=== PATIENT | female | born 1960 | race Caucasian/White ===

== ENCOUNTER 2017-01-27 15:01 | Inpatient (IN) | payer MEDICAID ==
[~2017-01-27] VITALS: Ht 154.9 cm; Wt 83.0 kg
[2017-01-27 16:51] LABS: BASOPHIL % 0.3 % (0-2); PLATELET COUNT 210 x10^3mcL (130-400); RED CELL DISTRIBUTION WIDTH 12.8 % (11.5-14.5)
[2017-01-27 16:57] LABS: CALCIUM 8.7 mg/dL (8.5-10.1); CARBON DIOXIDE 31.7 mmol/L (21-32); CHLORIDE SERUM 103 mmol/L (98-107); CREATININE SERUM 0.9 mg/dL (0.6-1.0); GFR1 > 60 mL/min; GLUCOSE SERUM 211 mg/dL (74-106); POTASSIUM SERUM 3.5 mmol/L (3.5-5.1); SODIUM SERUM 139 mmol/L (136-145)
[2017-01-27 17:01] LABS: ALKALINE PHOSPHATASE 105 U/L (46-116); ALT/SGPT 26 U/L (14-59); AMYLASE 25 U/L (25-115); AST/SGOT 14 U/L (15-37); BILIRUBIN TOTAL 0.6 mg/dL (0.20-1.00); HDL CHOLESTEROL 47 mg/dL (40-60); LIPASE 73 IU/L (73-393); TOTAL PROTEIN, SERUM 7.4 g/dL (6.4-8.2)
[2017-01-27 17:10] LABS: ALBUMIN 3.3 g/dL (3.4-5.0); CHOLESTEROL 120 mg/dL (<200)
[2017-01-27 17:51] LABS: microscopic required? YES; urine erythrocyte NEGATIVE (NEGATIVE)
[2017-01-27 18:00] LABS: AMPHETAMINE QUAL UR NONE DETECTED (NEG <=1000)
[2017-01-27] MEDS ORDERED: GLUCOPHAGE XR500 MG PO (18:14)
[2017-01-27 18:46] LABS: PHOSPHOROUS 3.5 mg/dL (2.5-4.9)
[2017-01-27 18:57] LABS: T3 TOTAL 1.13 ng/mL
[2017-01-27 19:07] LABS: FREE T4 1.11 ng/dL (0.76-1.46)
[2017-01-27 19:53] VITALS: BP 150/78
[2017-01-27 22:08] VITALS: BP 141/75
[2017-01-28 06:01] VITALS: BP 156/77
[2017-01-28 07:33] LABS: CALCIUM 8.9 mg/dL (8.5-10.1); CARBON DIOXIDE 23.8 mmol/L (21-32); CHLORIDE SERUM 105 mmol/L (98-107); CREATININE SERUM 0.7 mg/dL (0.6-1.0); GFR1 > 60 mL/min; GLUCOSE SERUM 299 mg/dL (74-106); MAGNESIUM 1.9 mg/dL (1.8-2.4); PHOSPHOROUS 3.5 mg/dL (2.5-4.9); POTASSIUM SERUM 3.9 mmol/L (3.5-5.1); SODIUM SERUM 139 mmol/L (136-145)
[2017-01-28 08:26] LABS: PLATELET COUNT 196 x10^3mcL (130-400)
[2017-01-28 09:30] VITALS: BP 154/84
[2017-01-28 09:35] LABS: BAND NEUTROPHIL 4 % (0-10); METAMYELOCTE 2 % (0-2); MONOCYTE 1 % (0-7); PLATELET MORPHOLOGY FEW LARGE PLATELETS; SEGMENTED NEUTROPHILS 83 % (37-75); rbc morphology (normal/abnorm) NORMAL (NORMAL)
[2017-01-28 11:54] VITALS: Ht 154.9 cm; Wt 83.0 kg
[2017-01-28 13:10] VITALS: BP 161/80
[2017-01-28 18:41] VITALS: BP 165/82
[2017-01-28 20:36] VITALS: BP 138/78
[2017-01-29 07:14] LABS: CARBON DIOXIDE 24.4 mmol/L (21-32); CHLORIDE SERUM 108 mmol/L (98-107); CREATININE SERUM 0.6 mg/dL (0.6-1.0); GFR1 > 60 mL/min; GLUCOSE SERUM 209 mg/dL (74-106); POTASSIUM SERUM 3.5 mmol/L (3.5-5.1); SODIUM SERUM 140 mmol/L (136-145)
[2017-01-29 07:17] VITALS: BP 156/78
[2017-01-29 07:24] LABS: BASOPHIL % 0.2 % (0-2); PLATELET COUNT 195 x10^3mcL (130-400); RED CELL DISTRIBUTION WIDTH 13.3 % (11.5-14.5)
[2017-01-29 10:38] VITALS: BP 162/91
[2017-01-29 11:30] VITALS: BP 136/75
[2017-01-29] MEDS ORDERED: ECO81 PO (11:43)
[2017-01-29] MEDS ORDERED: PRA20 PO (11:43)
[2017-01-29] MEDS ORDERED: COL100 PO (11:44)
[2017-01-29] MEDS ORDERED: PRI20 PO (11:45)
[2017-01-29] MEDS ORDERED: METFORMIN HCL1000 MG PO (11:46)
[2017-01-29] MEDS ORDERED: LAC PO (11:46)
[2017-01-29] MEDS ORDERED: GLU5 PO (11:47)
[2017-01-29] MEDS ORDERED: MAC100 PO (11:47)
[2017-01-29] MEDS ORDERED: NORCO1 TA2 PO (11:49)
[2017-01-29] MEDS ORDERED: LISINOPRIL10 MG PO (11:50)
== END 2017-01-29 13:45 | disposition home or self-care (01) | DRG 243 ==
LOC: ED 15:01 → DU 17:48
PROVIDERS: Emergency Medicine; Family Medicine; ADMIT Family Medicine
DX: K21.9 Gastro-esophageal reflux disease without esophagitis (principal); N17.0 Acute kidney failure with tubular necrosis; E44.1 Mild protein-calorie malnutrition; D68.69 Other thrombophilia; E11.59 Type 2 diabetes mellitus with other circulatory complications; E11.65 Type 2 diabetes mellitus with hyperglycemia; I16.0 Hypertensive urgency; E66.9 Obesity, unspecified; Z68.34 Body mass index [BMI] 34.0-34.9, adult; Z79.84 Long term (current) use of oral hypoglycemic drugs; Z90.710 Acquired absence of both cervix and uterus
CPT/HCPCS: 80307; 83880; 84439; 90732; J0360; J0696; J1815; J2930; J7030; J7613; J7644; Q0092

== ENCOUNTER 2017-03-22 15:06 | Emergency (ER) | payer MEDICAID ==
[~2017-03-22 15:06] MED LIST: COL100 PO; ECO81 PO; GLU5 PO; GLUCOPHAGE XR500 MG PO; LAC PO; LISINOPRIL10 MG PO; MAC100 PO; METFORMIN HCL1000 MG PO; NORCO1 TA2 PO; PRA20 PO; PRI20 PO
[2017-03-22 15:33] LABS: BASOPHIL % 0.4 % (0-2); PLATELET COUNT 234 x10^3mcL (130-400); RED CELL DISTRIBUTION WIDTH 13.2 % (11.5-14.5)
[2017-03-22 15:47] LABS: CALCIUM 8.5 mg/dL (8.5-10.1); CARBON DIOXIDE 29.2 mmol/L (21-32); CHLORIDE SERUM 105 mmol/L (98-107); CREATININE SERUM 0.7 mg/dL (0.6-1.0); GFR1 > 60 mL/min; GLUCOSE SERUM 156 mg/dL (74-106); POTASSIUM SERUM 3.9 mmol/L (3.5-5.1); SODIUM SERUM 141 mmol/L (136-145)
[2017-03-22 15:52] LABS: ALKALINE PHOSPHATASE 98 U/L (46-116); ALT/SGPT 28 U/L (14-59); AST/SGOT 14 U/L (15-37); BILIRUBIN TOTAL 0.49 mg/dL (0.20-1.00); TOTAL PROTEIN, SERUM 7.5 g/dL (6.4-8.2)
[2017-03-22 15:56] LABS: ALBUMIN 3.2 g/dL (3.4-5.0)
[2017-03-22 17:42] LABS: T4(THYROXINE) 10.1 ug/dL (4.7-13.3)
[2017-03-22 18:44] VITALS: BP 158/89
== END 2017-03-22 18:44 | disposition home or self-care (01) ==
LOC: ED 15:06
PROVIDERS: Emergency Medicine
DX: R00.2 Palpitations (principal); M54.6 Pain in thoracic spine; I10 Essential (primary) hypertension; E11.9 Type 2 diabetes mellitus without complications
CPT/HCPCS: 36415; 83880

== ENCOUNTER 2017-03-27 00:34 | Emergency (ER) | payer MEDICAID ==
[2017-03-27 04:25] VITALS: BP 142/62
== END 2017-03-27 04:26 | disposition home or self-care (01) ==
LOC: ED 00:34
DX: M43.06 Spondylolysis, lumbar region (principal); R10.32 Left lower quadrant pain; I10 Essential (primary) hypertension; E11.9 Type 2 diabetes mellitus without complications; Z79.84 Long term (current) use of oral hypoglycemic drugs
CPT/HCPCS: J1885

== ENCOUNTER 2017-05-09 09:45 | Emergency (ER) | payer MEDICAID ==
[~2017-05-09] VITALS: Ht 157.5 cm; Wt 84.0 kg
[2017-05-09 10:33] LABS: BASOPHIL % 0.3 % (0-2); PLATELET COUNT 209 x10^3mcL (130-400)
[2017-05-09 10:53] LABS: CALCIUM 8.6 mg/dL (8.5-10.1); CARBON DIOXIDE 29.3 mmol/L (21-32); CHLORIDE SERUM 105 mmol/L (98-107); CREATININE SERUM 0.7 mg/dL (0.6-1.0); GFR1 > 60 mL/min; GLUCOSE SERUM 290 mg/dL (74-106); POTASSIUM SERUM 3.9 mmol/L (3.5-5.1); SODIUM SERUM 137 mmol/L (136-145)
[2017-05-09 10:58] LABS: ALBUMIN 3.2 g/dL (3.4-5.0); ALKALINE PHOSPHATASE 109 U/L (46-116); ALT/SGPT 23 U/L (14-59); AST/SGOT 15 U/L (15-37); BILIRUBIN TOTAL 0.5 mg/dL (0.20-1.00); TOTAL PROTEIN, SERUM 7.7 g/dL (6.4-8.2)
[2017-05-09 11:37] LABS: microscopic required? NO
[2017-05-09 11:45] LABS: UA SPECIFIC GRAVITY <=1.005 (1.005-1.035); urine erythrocyte NEGATIVE (NEGATIVE)
[2017-05-09 13:14] VITALS: BP 173/95
== END 2017-05-09 13:14 | disposition home or self-care (01) ==
LOC: ED 09:45
PROVIDERS: Emergency Medicine
DX: R51 Headache (principal); R42 Dizziness and giddiness; I10 Essential (primary) hypertension; E11.9 Type 2 diabetes mellitus without complications; Z88.8 Allergy status to other drugs, medicaments and biological substances; Z79.84 Long term (current) use of oral hypoglycemic drugs
CPT/HCPCS: 83880; J2405; J3010; J7030; Q0092

== ENCOUNTER 2017-07-28 11:56 | Emergency (ER) | payer MEDICAID ==
[2017-07-28 13:30] VITALS: BP 162/94
== END 2017-07-28 13:55 | disposition home or self-care (01) ==
LOC: ED 11:56
DX: N39.0 Urinary tract infection, site not specified (principal); I10 Essential (primary) hypertension; E11.9 Type 2 diabetes mellitus without complications; Z79.84 Long term (current) use of oral hypoglycemic drugs; Z88.8 Allergy status to other drugs, medicaments and biological substances

== ENCOUNTER 2018-11-23 06:55 | Emergency (ER) | payer MEDICAID ==
[~2018-11-23] VITALS: Ht 157.5 cm; Wt 83.0 kg
[2018-11-23 07:06] VITALS: Ht 157.5 cm; Wt 83.0 kg
[2018-11-23 08:00] LABS: BASOPHIL % 0.1 % (0-2); PLATELET COUNT 185 x10^3mcL (130-400); RED CELL DISTRIBUTION WIDTH 12.8 % (11.5-14.5)
[2018-11-23 08:02] LABS: CALCIUM 8.4 mg/dL (8.5-10.1); CARBON DIOXIDE 28.5 mmol/L (21-32); CHLORIDE SERUM 107 mmol/L (98-107); CREATININE SERUM 0.7 mg/dL (0.6-1.0); GFR1 > 60 mL/min; GLUCOSE SERUM 261 mg/dL (74-106); POTASSIUM SERUM 3.8 mmol/L (3.5-5.1); SODIUM SERUM 143 mmol/L (136-145)
[2018-11-23 08:11] LABS: ALKALINE PHOSPHATASE 117 U/L (46-116); ALT/SGPT 26 U/L (14-59); AST/SGOT 17 U/L (15-37); BILIRUBIN TOTAL 0.79 mg/dL (0.20-1.00); HDL CHOLESTEROL 44 mg/dL (40-60); LIPASE 52 IU/L (73-393); T4(THYROXINE) 9.5 ug/dL (4.7-13.3); TOTAL PROTEIN, SERUM 7.2 g/dL (6.4-8.2)
[2018-11-23 08:12] LABS: AMYLASE 22 U/L (25-115); CHOLESTEROL 118 mg/dL (<200)
[2018-11-23 08:24] LABS: UA SPECIFIC GRAVITY <=1.005 (1.005-1.035); microscopic required? YES; urine erythrocyte NEGATIVE (NEGATIVE)
[2018-11-23 08:45] LABS: AMPHETAMINE QUAL UR NONE DETECTED (See below)
[2018-11-23 09:30] VITALS: BP 180/90
== END 2018-11-23 09:30 | disposition home or self-care (01) ==
LOC: ED 06:55
PROVIDERS: Emergency Medicine
DX: J98.01 Acute bronchospasm (principal); E46 Unspecified protein-calorie malnutrition; I10 Essential (primary) hypertension; E66.9 Obesity, unspecified; E11.65 Type 2 diabetes mellitus with hyperglycemia; Z68.33 Body mass index [BMI] 33.0-33.9, adult
CPT/HCPCS: 36415; 83880; J2930; J7613; J7644

== ENCOUNTER 2018-12-04 01:06 | Emergency (ER) | payer MEDICAID ==
[~2018-12-04] VITALS: Ht 157.5 cm; Wt 78.5 kg
[2018-12-04 01:16] VITALS: Ht 157.5 cm; Wt 78.5 kg
[2018-12-04 04:39] LABS: CALCIUM 8.4 mg/dL (8.5-10.1); CARBON DIOXIDE 27.2 mmol/L (21-32); CHLORIDE SERUM 103 mmol/L (98-107); CREATININE SERUM 0.6 mg/dL (0.6-1.0); GFR1 > 60 mL/min; GLUCOSE SERUM 374 mg/dL (74-106); POTASSIUM SERUM 4.1 mmol/L (3.5-5.1); SODIUM SERUM 137 mmol/L (136-145)
[2018-12-04 05:30] VITALS: BP 149/72
== END 2018-12-04 05:30 | disposition home or self-care (01) ==
LOC: ED 01:06
PROVIDERS: Emergency Medicine
DX: E11.65 Type 2 diabetes mellitus with hyperglycemia (principal); I10 Essential (primary) hypertension; Z90.710 Acquired absence of both cervix and uterus; Z88.6 Allergy status to analgesic agent
CPT/HCPCS: 36415; 82962; J1885

== ENCOUNTER 2018-12-06 23:45 | Emergency (ER) | payer MEDICAID ==
[~2018-12-06] VITALS: Ht 152.4 cm; Wt 80.3 kg
[2018-12-07 00:11] VITALS: Ht 152.4 cm; Wt 80.3 kg
[2018-12-07 02:00] VITALS: BP 150/78
== END 2018-12-07 02:00 | disposition home or self-care (01) ==
LOC: ED 23:45
DX: N76.0 Acute vaginitis (principal); I10 Essential (primary) hypertension; E11.9 Type 2 diabetes mellitus without complications; Z88.1 Allergy status to other antibiotic agents; Z90.710 Acquired absence of both cervix and uterus
CPT/HCPCS: J1885

== ENCOUNTER 2019-11-03 06:10 | Emergency (ER) | payer MEDICAID ==
[~2019-11-03] VITALS: Ht 160 cm; Wt 81.6 kg
[2019-11-03 06:23] VITALS: Ht 160 cm; Wt 81.6 kg
[2019-11-03 10:46] VITALS: BP 146/72
== END 2019-11-03 10:46 | disposition home or self-care (01) ==
LOC: ED 06:10
DX: J98.01 Acute bronchospasm (principal); I10 Essential (primary) hypertension; E11.9 Type 2 diabetes mellitus without complications; E66.9 Obesity, unspecified; Z68.31 Body mass index [BMI] 31.0-31.9, adult; Z90.710 Acquired absence of both cervix and uterus; Z88.6 Allergy status to analgesic agent
CPT/HCPCS: 82962; 87804; J2930; J7613; J7644

== ENCOUNTER 2019-11-07 09:45 | Emergency (ER) | payer MEDICAID ==
[~2019-11-07] VITALS: Ht 157.5 cm; Wt 78.5 kg
[2019-11-07 10:00] VITALS: Ht 157.5 cm; Wt 78.5 kg
[2019-11-07 11:35] VITALS: BP 166/83
== END 2019-11-07 11:35 | disposition home or self-care (01) ==
LOC: ED 09:45
DX: J40 Bronchitis, not specified as acute or chronic (principal); Z76.0 Encounter for issue of repeat prescription; I10 Essential (primary) hypertension; E11.9 Type 2 diabetes mellitus without complications; Z90.710 Acquired absence of both cervix and uterus

== ENCOUNTER 2019-11-10 13:17 | Emergency (ER) | payer MEDICAID ==
[~2019-11-10] VITALS: Ht 160 cm; Wt 78.0 kg
[2019-11-10 14:04] VITALS: Ht 160 cm; Wt 78.0 kg
[2019-11-10 18:59] VITALS: BP 199/90
== END 2019-11-10 18:59 | disposition home or self-care (01) ==
LOC: ED 13:17
DX: J40 Bronchitis, not specified as acute or chronic (principal); I10 Essential (primary) hypertension; E11.9 Type 2 diabetes mellitus without complications; Z90.710 Acquired absence of both cervix and uterus; Z88.6 Allergy status to analgesic agent

== ENCOUNTER 2019-11-16 16:01 | Emergency (ER) | payer MEDICAID ==
[~2019-11-16] VITALS: Ht 152.4 cm; Wt 76.2 kg
[2019-11-16 16:07] VITALS: Ht 152.4 cm; Wt 76.2 kg
[2019-11-16 16:43] LABS: BASOPHIL % 0.3 % (0-2); PLATELET COUNT 250 x10^3mcL (130-400); RED CELL DISTRIBUTION WIDTH 13.8 % (11.5-14.5)
[2019-11-16 16:50] LABS: CALCIUM 8.4 mg/dL (8.5-10.1); CARBON DIOXIDE 26.6 mmol/L (21-32); CHLORIDE SERUM 101 mmol/L (98-107); CREATININE SERUM 0.8 mg/dL (0.6-1.0); GFR1 > 60 mL/min; GLUCOSE SERUM 388 mg/dL (74-106); POTASSIUM SERUM 4.6 mmol/L (3.5-5.1); SODIUM SERUM 133 mmol/L (136-145)
[2019-11-16 16:55] LABS: ALKALINE PHOSPHATASE 105 U/L (46-116); ALT/SGPT 28 U/L (14-59); AST/SGOT 16 U/L (15-37); TOTAL PROTEIN, SERUM 6.6 g/dL (6.4-8.2)
[2019-11-16 17:05] LABS: ALBUMIN 2.8 g/dL (3.4-5.0)
[2019-11-16 19:15] LABS: microscopic required? NO
[2019-11-16 19:23] LABS: urine erythrocyte NEGATIVE (NEGATIVE)
[2019-11-16 21:51] VITALS: BP 147/84
== END 2019-11-16 22:45 | disposition home or self-care (01) ==
LOC: ED 16:01
PROVIDERS: Emergency Medicine
DX: E11.65 Type 2 diabetes mellitus with hyperglycemia (principal); I10 Essential (primary) hypertension; Z90.710 Acquired absence of both cervix and uterus; Z88.5 Allergy status to narcotic agent
CPT/HCPCS: 82962; J7030; Q0162